=== PATIENT | male | born 1960 | race Caucasian/White ===

== ENCOUNTER → 2021-11-08 | Day surgery (SDC) | payer OTHER ==
[~2021-11-08] VITALS: Ht 175.3 cm; Wt 123.4 kg
[~2021-11-08] MED LIST: ASPIRIN EC81 MG PO; CARVEDILOL 25MG25 MG PO; ELIQUIS5 MG PO; ENTRESTO 97 MG1 EACH PO; FEOSOL325 MG PO; GLYBURIDE-METF1 EACH PO; HUMALOG 75100 UNIT/M SC; JARDIANCE25 MG PO; LEVEMIR DO100 UNITS/ IJ; LOVAZA1 GM PO; PANTOPRAZOLE SO40 MG PO; ROSUVASTATIN CA20 MG PO; TUMERIC PO; VITAMIN D310 MC1 PO
== END | disposition home or self-care (01) ==
LOC: FAS 10:06
DX: Z12.11 Encounter for screening for malignant neoplasm of colon (principal); K57.30 Diverticulosis of large intestine without perforation or abscess without bleeding; K31.9 Disease of stomach and duodenum, unspecified; D64.9 Anemia, unspecified; R00.1 Bradycardia, unspecified; I25.2 Old myocardial infarction; E11.9 Type 2 diabetes mellitus without complications; I25.10 Atherosclerotic heart disease of native coronary artery without angina pectoris; I11.0 Hypertensive heart disease with heart failure; I50.9 Heart failure, unspecified; K21.9 Gastro-esophageal reflux disease without esophagitis; E78.00 Pure hypercholesterolemia, unspecified; Z88.0 Allergy status to penicillin; Z91.018 Allergy to other foods; Z79.01 Long term (current) use of anticoagulants; Z79.82 Long term (current) use of aspirin; Z79.4 Long term (current) use of insulin; Z79.899 Other long term (current) drug therapy
CPT/HCPCS: 43239; G0121; J2250; J2704; J7120